=== PATIENT | female | born 1970 ===

== ENCOUNTER 2017-10-13 08:00 | Inpatient (IN) | payer OTHER ==
[~2017-10-13] VITALS: Ht 160 cm; Wt 63.5 kg
== END 2017-10-22 14:12 | disposition home or self-care (01) | DRG 621 ==
LOC: SURG 10-21 07:00 → O/R 10-21 07:54 → SURG 10-21 08:00
PROVIDERS: Plastic Surgery
PROC: 0J080ZZ Alteration of Abdomen Subcutaneous Tissue and Fascia, Open Approach (ICD-10-PCS; principal; 2017-10-21 07:00)
PROC: 0HBV0ZZ Excision of Bilateral Breast, Open Approach (ICD-10-PCS; 2017-10-21 07:00)
DX: E65 Localized adiposity (principal); N62 Hypertrophy of breast; E66.01 Morbid (severe) obesity due to excess calories

== ENCOUNTER 2018-02-13 06:00 | Day surgery (SDC) | payer OTHER ==
[~2018-02-13 06:00] MED LIST: GLYCOTROL CAPS1 EACH PO; IRON325 MG PO
== END 2018-02-13 12:59 | disposition home or self-care (01) ==
LOC: CIR.AMB 06:00
DX: N64.82 Hypoplasia of breast (principal)